=== PATIENT | female | born 1940 | race Caucasian/White ===

== ENCOUNTER 2017-02-02 10:50 | Inpatient (IN) ==
[2017-02-02 11:40] VITALS: BMI 34.9
[2017-02-02] MEDS ORDERED: DIAZEPAM 2 MG TABLET PO PRN (12:31)
[2017-02-02] MEDS: FUROSEMIDE 40 MG/4 ML INJECTION IVP SCH ×2 (12:43→20:07)
[2017-02-02] MEDS ORDERED: FALL RISK - PHARMACY CONSULT XX ONE (13:02)
[2017-02-02] MEDS ORDERED: LACTOBACILLUS (15B cfu) CAPSULE PO SCH (14:00)
--- NOTE | 2017-02-02 15:05 | History and Physical ---
HPI The patient is a 76-year-old female who presented to Dr. Eddie Edmond's office this morning with chief complaint of having more dyspnea, shortness of breath is not getting better. She was seen by myself on 01/26/2017 with symptoms clearly consistent with upper URI with manifestation of acute bronchitis. She was treated with antibiotics, steroids, inhaler and breathing treatment in the office setting as well as allergy medicine. All those things were done and she was not getting better. Yesterday she was short of breath that she went to the emergency room at [facility]. She was evaluated with EKG and some lab. No chest x-ray was done at that time. She was also diagnosed with acute bronchitis and sent home to continue her inhaler and follow with me if not improving. She is not improving. She also complains of severe headache in the right temporal lobe region, maybe to the back sometimes. It comes and goes. She had a similar episode not too long ago. She told me she had a CT of the head done which was unremarkable. In addition, she has been noticing a lot of palpitations, pounding heartbeat. Yesterday her heart was pounding really fast most of the whole day. She took an extra dose of metoprolol which seemed to help calm things down for her. She is just profoundly tired and short of breath. She says she is so weak and unsteady. She denies hemoptysis. No nausea, vomiting, chest pain, orthopnea, hematochezia, melena, TIA or seizure symptoms. PAST MEDICAL HISTORY 1. CVA. 2. Hypertension. 3. Type 2 diabetes mellitus not needing insulin. 4. GERD. 5. Clotting disorder. 6. DVT. 7. Chronic atrial fibrillation. 8. Stroke in the past. 9. URI. 10. Acute bronchitis. FAMILY HISTORY Positive for macular degeneration and heart attack as well as diabetes mellitus. CURRENT MEDICATIONS Listed in MAR. Lisinopril 5 mg one tablet p.o. b.i.d. Magnesium 64 one tablet twice daily. Valium 2 mg one tablet daily p.r.n. Zantac 150 mg one tablet p.o. b.i.d. Eliquis 5 mg one tablet p.o. b.i.d. Buspirone 10 mg one tablet t.i.d. Allopurinol 100 mg one tablet at bedtime. Aspirin 81 mg one tablet daily. Probiotic one tablet daily. Metoprolol succinate 50 mg p.o. b.i.d. Potassium chloride 20 mEq one tablet daily. ALLERGIES Tylenol, hydrocodone, oxycodone, narcotics. These all cause severe hallucinations. PHYSICAL EXAM GENERAL: The patient looks weak and tired. She is not really showing any dyspnea at this time. Oxygen saturation 93% on room air. HEENT: Unremarkable. NECK: Supple. Patient has JVD bilaterally. No bruit. CHEST: Lungs are clear bilaterally. Maybe a few crackles at the bases. CARDIOVASCULAR: Irregularly irregular rhythm, 70-80. No significant murmur heard. ABDOMEN: Soft, nontender. EXTREMITIES: No cyanosis or clubbing. She does have 1 to 2+ pitting edema bilaterally. NEUROLOGIC: The patient is awake, alert and oriented x 3. She does look tired. Chest x-ray did show evidence of pulmonary vascular markings consistent with CHF. BNP was over 3800 in the emergency room yesterday. ASSESSMENT 1. Acute congestive heart failure superimposed on chronic congestion heart disease. 2. Atrial fibrillation with rapid ventricular response yesterday. This is resolved after she took an extra dose of metoprolol 25 mg. 3. Recent acute bronchitis, treated and resolved. 4. Type 2 diabetes mellitus not needing insulin. 5. Dyspnea. 6. Anxiety disorder. PLAN Admit patient to [facility] for further evaluation and recommendations. See my order. CBC, CMP, TSH, Troponin I, D-dimer, EKG and sedimentation rate because of the headache. 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 She received Toradol 60 mg IM in this office setting for the headache today. Will follow up on chest x-ray in the morning. Will follow up with echocardiogram. The patient's electric meter inspector is Dr. Head. Will see if we need consultation to Dr. Head. Will evaluate patient in the morning and decide if we need a consultation at that time, sooner if needed. GAIL
[2017-02-02] MEDS: BUSPIRONE 10 MG TABLET PO SCH ×2 (17:53→20:09)
[2017-02-02] MEDS: ALLOPURINOL 100 MG TABLET PO SCH (20:08)
[2017-02-02] MEDS: APIXABAN 5 MG TABLET PO SCH (20:09)
[2017-02-02] MEDS: SALINE FLUSH 10ml SYRINGE IV PRN (20:13)
[2017-02-03] MEDS: FUROSEMIDE 40 MG/4 ML INJECTION IVP SCH ×2 (04:27→12:42)
[2017-02-03] MEDS ORDERED: ACETAMINOPHEN 325 MG TABLET PO PRN (05:11)
[2017-02-03] MEDS: ACETAMINOPHEN 325 MG TABLET PO PRN ×2 (05:24→19:58)
--- NOTE | 2017-02-03 08:41 | Echocardiogram ---
DATE OF PROCEDURE February 02, [address] Eddie Edmond This is a two-dimensional echo with spectral Doppler, color-flow and M-mode. It was obtained in a patient with congestive heart failure. Left atrium is dilated. Left ventricle end-diastolic dimension is normal. Left ventricle wall thickness is increased. LV systolic function is normal with ejection fraction of about 60%. Right atrium is dilated. Right ventricle is normal. Aortic root dimension is normal. Mitral valve is morphologically normal with mild mitral regurgitation. Aortic valve shows fibrocalcific changes with no stenosis. Mild aortic insufficiency is present. Tricuspid valve shows mild tricuspid regurgitation with severe pulmonary hypertension with estimated pulmonary artery systolic pressure of 67. Pulmonary valve shows trace of pulmonary insufficiency. There is no pericardial effusion. IMPRESSION 1. Normal LV systolic function with ejection fraction of about 60%. 2. Biatrial dilation. 3. Left ventricular hypertrophy. 4. Aortic sclerosis with mild aortic insufficiency. 5. Mild mitral regurgitation. 6. Mild tricuspid regurgitation with severe pulmonary hypertension with estimated pulmonary artery systolic pressure of 67. 7. Trace of pulmonary insufficiency. MTDD
--- NOTE | 2017-02-03 08:52 | XRay Report ---
INDICATION: SOA,CHF PROCEDURE: CHEST 2-VIEWS UPRIGHT (PA & LAT) Encounter: Initial COMPARISON: February 02, 2017 FINDINGS: Edema has improved. Lungs are clear. There is no pleural effusion or pneumothorax. The heart size, mediastinal contours and pulmonary vascularity are within normal limits. There is no significant skeletal abnormality. IMPRESSION: Improved edema. .
[2017-02-03] MEDS: APIXABAN 5 MG TABLET PO SCH ×2 (10:19→21:48)
[2017-02-03] MEDS: BUSPIRONE 10 MG TABLET PO SCH ×3 (10:20→21:48)
[2017-02-03] MEDS: ASPIRIN 81 MG CHEWABLE TABLET PO SCH (10:20)
[2017-02-03] MEDS: LISINOPRIL 5 MG TABLET PO SCH (10:21)
[2017-02-03] MEDS: LACTOBACILLUS (15B cfu) CAPSULE PO SCH (10:21)
[2017-02-03] MEDS: SALINE FLUSH 10ml SYRINGE IV PRN (12:43)
[2017-02-03] MEDS ORDERED: METHYLPREDNISOLONE SOD SUCC 125mg/2ml INJECTION IM ONE (21:00)
[2017-02-03] MEDS ORDERED: KETOROLAC 15 MG/ML INJECTION IM ONE (21:00)
[2017-02-03] MEDS: ALLOPURINOL 100 MG TABLET PO SCH (21:48)
[2017-02-04] MEDS ORDERED: KETOROLAC 15 MG/ML INJECTION IM ONE (00:43)
[2017-02-04] MEDS ORDERED: FUROSEMIDE 80 MG TABLET PO ONE (04:30)
[2017-02-04] MEDS: BUSPIRONE 10 MG TABLET PO SCH ×2 (08:43→15:02)
[2017-02-04] MEDS: APIXABAN 5 MG TABLET PO SCH (08:43)
[2017-02-04] MEDS: LISINOPRIL 5 MG TABLET PO SCH (08:43)
[2017-02-04] MEDS: LACTOBACILLUS (15B cfu) CAPSULE PO SCH (08:44)
[2017-02-04] MEDS: ASPIRIN 81 MG CHEWABLE TABLET PO SCH (08:45)
[2017-02-04] MEDS ORDERED: FUROSEMIDE 40 MG/4 ML INJECTION IVP SCH (12:30)
[2017-02-04] MEDS ORDERED: FUROSEMIDE 40 MG/4 ML INJECTION IM SCH (12:45)
[2017-02-04] MEDS: FUROSEMIDE 40 MG TABLET PO SCH ×2 (13:10→19:04)
[2017-02-04 16:16] VITALS: BP 164/71; PULSE 53; RESP 16; TEMP 98.1; O2SAT 95
--- NOTE | 2017-02-27 14:05 | Progress Note ---
DATE 02/03/2017 (Late entry) SUBJECTIVE The patient thinks that she is doing a little better. She is still quite tired. Less dyspneic. PHYSICAL EXAMINATION GENERAL: She looks less dyspneic. She looks more comfortable. NECK: Supple. LUNGS: Clear. CARDIOVASCULAR: Irregular rhythm. ABDOMEN: Soft. Nontender. EXTREMITIES: Edema has gone down quite a bit. NEURO EXAM: Grossly intact. ASSESSMENT 1. Acute congestive heart failure - improving. 2. Atrial fibrillation with rapid ventricular response. Rate is well controlled. 3. Chronic kidney disease, stage 3. Creatinine stable. PLAN 1. Continue current care. 2. Anticipate dismissal on 02/04/2017. 3. Follow up electrolytes in the morning. GAIL
--- NOTE | 2017-02-28 13:38 | Discharge Summary ---
FINAL DIAGNOSES 1. Acute congestive heart failure superimposed on chronic heart disease. 2. Atrial fibrillation with rapid ventricular response. 3. Acute bronchitis, treated and resolved. 4. Dyspnea, treated and much improved. 5. Type 2 diabetes mellitus not needing insulin. 6. Anxiety disorder. 7. Hypertension. 8. Chronic kidney disease stage III to IV. CONSULTATIONS None. REASON FOR ADMISSION The patient is a 76-year-old female who presented to Dr. Eddie Edmond's office on the day of admission with persistent dyspnea/shortness of breath. She had been treated for acute bronchitis prior to that. She was just not getting better. Therefore, a chest x-ray was done on the day of admission which showed evidence of acute pulmonary congestion. She was having some headache - CT of the head was unremarkable. On physical examination the patient looked very tired and weak. Oxygen saturation was 93% on room air. She did have JVD bilaterally. Her lungs had a few crackles at the bases. Cardiovascular showed irregularly irregular rhythm with a rate of 70 to 80. She had 1 to 2+ pitting edema bilaterally. LABORATORY/RADIOGRAPHIC EVALUATION Chest x-ray showed evidence of pulmonary vascular markings consistent with CHF. BNP was 3800 in the emergency room the day earlier. Hemoglobin was 13.4. WBC 10.0. Platelet count 312,000. CMP did show potassium 5.1, sodium 139, creatinine 1.43. ESR 35. ALT 88. BNP 2500. PTH 93.6. UA essentially normal. HOSPITAL COURSE The patient was admitted to the medical floor under the care of Dr. Eddie Edmond. The patient was treated with IV Lasix as well as a beta ale. Echocardiogram showed biatrial dilatation, EF 60%, normal left ventricular systolic function, mild aortic sclerosis, LVH. The patient responded well to treatment. She was medically stable enough to be dismissed to home on 2016. DISCHARGE MEDICATIONS Tylenol 325 mg one to two tablets every four to five hours p.r.n. Allopurinol 100 mg p.o. q.h.s. Eliquis 5 mg p.o. b.i.d. Aspirin 81 mg one tablet daily. BuSpar 10 mg p.o. t.i.d. Valium 2 mg one tablet daily. Lasix 40 mg one tablet daily. Lactobacillus acidophilus one tablet daily. Lisinopril 5 mg one tablet p.o. b.i.d. Magnesium 64 mg one tablet p.o. b.i.d. Metoprolol 50 mg p.o. b.i.d. Oxybutynin chloride one tablet daily. Potassium chloride 20 mEq one tablet daily. Zantac 150 mg p.o. b.i.d. FOLLOWUP The patient will follow up with Dr. Eddie Edmond in one week. [facility]
== END 2017-02-04 19:30 | disposition home or self-care (01) | DRG 293 ==
LOC: MED 11:19
PROVIDERS: ADMIT Family Medicine; ATTEND Family Medicine